=== PATIENT | female | born 1950 | race Caucasian/White ===

== ENCOUNTER 2024-10-12 07:31 | Emergency (ER) | payer MEDICARE, SELFPAY ==
--- NOTE | 2024-10-12 07:37 | ED_ITS ---
HPI - Eye Problem General Chief complaint: Skin/Abscess/Foreign Body Stated complaint: shingles in right eye? 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 patient was seen at walk-in clinic on 10/10/2024 and was diagnosed with herpes zoster was started on valacyclovir. Patient denies any visual disturbances. Does not use contacts or corrective lenses at baseline. She is stating that she has only had 1 full day of her valacyclovir. Has not made an appointment with an dairy farm operator as of yet. She states that she started having some pain to her face which was new as well as worsening swelling to the right eye therefore decided come into the ED for further evaluation treatment. Related Data Home Medications Medication Instructions Recorded Confirmed ibuprofen 200 mg tablet (Advil) 200 mg PO Q6H PRN 08/20/19 08/20/19 lactobacillus combination no.8 3 3,000 mmu cells PO DAILY 08/20/19 10/10/24 billion cell capsule (Adult Probiotic) Previous Rx's Medication Instructions Recorded valacyclovir 1 gram tablet 1,000 mg PO TID 7 days #21 tabs 10/10/24 doxycycline hyclate 100 mg capsule 100 mg PO BID 7 days #14 caps 10/12/24 erythromycin 5 mg/gram (0.5 %) eye 0.5 inch EYE-RIGHT Q6H #3.5 grams 10/12/24 ointment Allergies Allergy/AdvReac Type Severity Reaction Status Date / Time immodium Allergy Severe reddened Uncoded 10/10/24 13:06 skin that peeled Review of Systems Review of Systems Narrative: General: Denies fever, chills, weight loss HEENT: positive right eye tearing, Denies headache, head trauma, sore throat, voice change Cardiovascular: Denies any chest pain, palpitations, shortness of breath, tachycardia Respiratory: Denies any shortness of breath, cough, wheeze, stridor GI/: Denies any abdominal pain, nausea, vomiting, diarrhea, bright red blood per rectum, melanotic stools, urinary frequency, urinary retention, dysuria, hematuria MSK: Denies any joint pain, muscle pains, swelling Skin: mild edema and erythema noted to the right periorbital region, mild tenderness to palpation Neuro: Denies any headache, lightheadedness, dizziness, fainting, weakness Psych: Denies SI/HI Patient History Medical History (Updated 10/12/24 @ 09:45 by Asif Cloud DO) Care refused by patient Skin abnormality Sebaceous cyst Family History Father Hypertension Mother Stroke Social History lives independently: Yes occupational status: employed current occupational exposures/hazards: No Smoking Status: Unknown if ever smoked alcohol intake: current Smoking Status: Unknown if ever smoked Exam Narrative Exam Narrative: General: Cooperative, comfortable, well-developed, not in acute distress HEENT: Normocephalic, atraumatic, PERRLA, normal sclera, eyelids normal, Eye exam: left eye without any corneal abrasions no dendrites , pressure equals 12 mm Hg, right eye no corneal abrasion, dendrites noted to the 12:00 location. area not overlying the pupil, clear/ tears drainage noted negative Leroy sign. Pressure equals 19 mm Hg Neck: Active full range of motion, atraumatic Chest: Normal to inspection, negative crepitus, no overlying erythema ecchymosis Respiratory: Normal respiratory effort, not in acute respiratory distress, clear to auscultation bilaterally negative cough, wheeze, tachypnea, rhonchi, rales Cardiology: Regular rate rhythm negative gallop, murmur, rubs GI/: Normal to inspection, soft, nonrigid, no tenderness to palpation, exam deferred MSK: Full range of active range of motion of all 4 extremities, atraumatic Skin: No rashes lesions noted Neuro: Alert awake oriented x3, moves all 4 extremities spontaneously, cranial nerves intact, able to answer all questions appropriately follows commands appropriately Psych: Cooperative, negative suicidal or homicidal ideations Initial Vital Signs Initial Vital Signs: Vital Signs Temperature 98.4 F 10/12/24 07:39 Pulse Rate 76 10/12/24 07:39 Respiratory Rate 18 10/12/24 07:39 Blood Pressure 165/77 H 10/12/24 07:39 Pulse Oximetry 100 10/12/24 07:39 Oxygen Delivery Method Room Air 10/12/24 07:39 Course Orders Ordered: ED Orders 10/12/24 07:44 CT orbit BI w con Stat 10/12/24 08:00 BMP [Basic Metabolic Panel] Stat CBC No Diff [Complete Blood Count NO DIFF] Stat Discontinued Medications Fluorescein Sodium (Fluorescein 1 Mg Strip) 1 mg EYE-BOTH NOW ONE Stop: 10/12/24 07:40 Last Admin: 10/12/24 07:45 Dose: 1 mg Documented By: CTS Proparacaine HCl (Proparacaine 0.5% Ophth Jade) 1 drops EYE-BOTH NOW ONE Stop: 10/12/24 07:40 Last Admin: 10/12/24 07:45 Dose: 1 drop Documented By: CTS Vital Signs Vital signs: Vital Signs - 8 hr 10/12/24 07:39 Temperature 98.4 F Pulse Rate 76 Respiratory Rate 18 Blood Pressure 165/77 H Pulse Oximetry 100 Oxygen Delivery Method Room Air MDM - Eye Problem Lab Data 10/12/24 08:00 10/12/24 08:00 Labs: Lab Results 10/12/24 Range/Units 08:00 WBC 5.9 (4.5-11.0) X10^3/uL RBC 4.42 (4.0-5.2) X10^6/uL Hgb 13.3 (12.0-16.0) g/dL Hct 39.6 (36-46) % MCV 89.5 (80-100) fL MCH 30.0 (26-34) PG MCHC 33.6 (30-36) % RDW 15.1 H (11.6-14.8) % Plt Count 189 (150-400) X10^3/uL Sodium 136 L (137-145) mmol/L Potassium 3.7 (3.4-5.1) mmol/L Chloride 106 (98-107) mmol/L Carbon Dioxide 24 (22-32) mmol/L BUN 11 (7-17) mg/dL Creatinine 0.55 (0.52-1.04) mg/dL Estimated GFR > 60 (>60) mL/min BUN/Creatinine Ratio 20.0 (6-22) Glucose 121 H (80-110) mg/dL Calcium 9.3 (8.4-10.2) mg/dL Imaging Data CT orbits : Radiologist's Impression: [address] [address] [address] Scan Report Signed Patient: Sugey Licea MR#: [id number] : 1950 Acct:[id number] Age/Sex: 73 / F Date of Service: 10/12/24 Loc: ED Accession Number: [id number] Procedure: CT orbit BI w con Ordering Provider: Asif Cloud D.O. PROCEDURE: CT ORBIT BI W CON INDICATIONS: right eye swelling and pain, r/o orbital cellulitis TECHNIQUE: After the administration of intravenous contrast, 2.5 mm axial images acquired through the orbits, with coronal and sagittal reformats. For radiation dose reduction, the following was used: automated exposure control, adjustment of mA and/or kV according to patient size. COMPARISON: None. FINDINGS: Image quality: Diagnostic Orbits: Globes are symmetrical. The optic nerves are normal in size and enhancement. No retrobulbar masses or fat abnormalities. The extra-ocular muscles are normal and symmetrical in appearance. Lacrimal glands are normal. Optic chiasm is normal. Periorbital soft tissues demonstrate moderate inflammatory stranding in the right periorbital and right facial region. No evidence for organized fluid collection/abscess. No soft tissue gas. No postseptal inflammation. Intracranial: The pituitary gland is normal, without sellar or suprasellar masses. Visualized cerebral hemispheres, brainstem, and spinal cord appear normal. Bones and sinuses: Visualized calvarium and facial bones appear intact. Bilateral mastoid air cells are clear. Near complete opacification of the left maxillary sinus. Mucosal thickening of the right maxillary sinus. Scattered ethmoid sinus mucosal thickening. IMPRESSION: 1. Right facial and periorbital soft tissue swelling and skin thickening. No postseptal inflammation. Findings are compatible with right preseptal periorbital and right facial cellulitis. No abscess identified. 2. Bilateral maxillary and scattered ethmoid sinus disease. [facility] Narrative Medical decision making narrative: patient is a 73-year-old female without any significant past medical history presents for right eye swelling pain, states it started on 10/10/2024 did go to walk-in clinic was diagnosed with shingles started valacyclovir, has only had 1 day of full dose of valacyclovir. She states that she woke up swelling was worse therefore decided come into the ED for further evaluation treatment. She denies any history of eye surgery denies any visual loss visual disturbances. Does not wear contacts does not wear corrective lenses. Patient with normal visual acuity here in the emergency department, exam does show dendrite on fluorescein stain, however no other abnormal findings, no corneal abrasions normal pressure negative Leroy sign bilaterally. CT scan Was performed here showing preseptal cellulitis not consistent with orbital cellulitis. lab work was performed patient without any leukocytosis Chem panel normal. Patient will be sent home with antibiotics, continued valacyclovir and ophthalmology follow up. Return precautions were given to the patient she verbalized understanding of this agrees to being discharged home with outpatient follow up. 0920: Did have discussion with Dr. Fsiher (opthomologist), states to continue Valacyclovir x10 days, would recommend adding doxy, and erythromycin ointment and to follow up next week for. Would recommend obtaining eye culture Discharge Plan Departure Patient Disposition: Home Clinical Impression: Preseptal cellulitis of right eye Activity Restrictions/Additional Instructions: Please call [facility] at [phone] and inform them that you were seen in the emergency department and Dr. Fisher would like to see you next week for a follow up Please read the discharge instructions sheet carefully and bring all papers to all doctor follow-up visits, as it may contain information that your doctor may want to see. Disease processes change and evolve, if your symptoms worsen or if you develop any new symptoms that are concerning to you please return for evaluation. Your evaluation today does not show any evidence of any life- threatening/serious illnesses requiring admission to the hospital or surgery. Please follow-up with your doctor for re-evaluation in approximately 1 day. Seek immediate medical attention for any worrisome symptoms. Prescriptions: New doxycycline hyclate 100 mg capsule 100 mg PO BID 7 Days Qty: 14 0RF erythromycin 5 mg/gram (0.5 %) ointment 0.5 inch EYE-RIGHT Q6H Qty: 3.5 0RF No Action valacyclovir 1 gram tablet 1,000 mg PO TID 7 Days Qty: 21 0RF Adult Probiotic 3 billion cell capsule 3,000 mmu cells PO DAILY ibuprofen [Advil] 200 mg tablet 200 mg PO Q6H PRN Referrals: Miscellaneous,Doctor, [Primary Care Provider] - Stand Alone Forms: Patient Portal/API/Survey
[2024-10-12 07:39] VITALS: BP 165/77; PULSE 76; RESP 18; TEMP 36.9; O2SAT 100; BMI 23.0
--- NOTE | 2024-10-12 07:44 | DI.CT.S_ITS ---
PROCEDURE: CT ORBIT BI W CON INDICATIONS: right eye swelling and pain, r/o orbital cellulitis TECHNIQUE: After the administration of intravenous contrast, 2.5 mm axial images acquired through the orbits, with coronal and sagittal reformats. For radiation dose reduction, the following was used: automated exposure control, adjustment of mA and/or kV according to patient size. COMPARISON: None. FINDINGS: Image quality: Diagnostic Orbits: Globes are symmetrical. The optic nerves are normal in size and enhancement. No retrobulbar masses or fat abnormalities. The extra-ocular muscles are normal and symmetrical in appearance. Lacrimal glands are normal. Optic chiasm is normal. Periorbital soft tissues demonstrate moderate inflammatory stranding in the right periorbital and right facial region. No evidence for organized fluid collection/abscess. No soft tissue gas. No postseptal inflammation. Intracranial: The pituitary gland is normal, without sellar or suprasellar masses. Visualized cerebral hemispheres, brainstem, and spinal cord appear normal. Bones and sinuses: Visualized calvarium and facial bones appear intact. Bilateral mastoid air cells are clear. Near complete opacification of the left maxillary sinus. Mucosal thickening of the right maxillary sinus. Scattered ethmoid sinus mucosal thickening. IMPRESSION: 1. Right facial and periorbital soft tissue swelling and skin thickening. No postseptal inflammation. Findings are compatible with right preseptal periorbital and right facial cellulitis. No abscess identified. 2. Bilateral maxillary and scattered ethmoid sinus disease. Dictated by: Buck Ruby M.D. on 10/12/2024 at 9:05 Approved by: Buck Ruby M.D. on 10/12/2024 at 9:13
[2024-10-12] MEDS: PROPARACAINE 0.5% OPHTH SOL 1 DROPS EYE-BOTH (07:45)
[2024-10-12] MEDS: FLUORESCEIN 1 MG STRIP EYE-BOTH (07:45)
[2024-10-12 08:17] LABS: Hematocrit 39.6 % (36-46); Hemoglobin 13.3 g/dL (12.0-16.0); Mean Corpuscular HGB Conc 33.6 % (30-36); Mean Corpuscular Volume 89.5 fL (80-100); Platelet Count 189 X10^3/uL (150-400); Red Blood Cell Count 4.42 X10^6/uL (4.0-5.2); Red Cell Distribution Width 15.1 % (11.6-14.8); White Blood Cell Count 5.9 X10^3/uL (4.5-11.0)
[2024-10-12 08:22] LABS: Blood Urea Nitrogen 11 mg/dL (7-17); Calcium 9.3 mg/dL (8.4-10.2); Carbon Dioxide 24 mmol/L (22-32); Chloride 106 mmol/L (98-107); Estimated Glomerular Filt Rate > 60 mL/min (>60); Glucose 121 mg/dL (80-110); HEMOLYSIS < 15 (0-50); Potassium 3.7 mmol/L (3.4-5.1); Sodium 136 mmol/L (137-145)
[2024-10-12 09:37] VITALS: BP 154/71; PULSE 70; RESP 18; O2SAT 99
[2024-10-12] MEDS: TRIMETH/SULFA 160/800 (DS) TABLET 1 TAB PO (09:42)
[2024-10-12] MEDS: CEFDINIR 300 MG CAPSULE PO (09:42)
== END 2024-10-12 10:00 | disposition home or self-care (01) ==
PROVIDERS: Emergency Provider Student in an Organized Health Care Education/Training Program
DX: L03.213 Periorbital cellulitis (principal)
CPT/HCPCS: 36415; 70481; 80048; 85027; 87070; 87077; 87205; 99284; Q9967